=== PATIENT | female | born 1935 | race Asian ===

== ENCOUNTER 2016-05-06 18:43 | Inpatient (IN) | payer MEDICARE, OTHER ==
[~2016-05-06] VITALS: Ht 154.9 cm; Wt 54.4 kg
[~2016-05-06 18:43] MED LIST: AMLODIPINE-BEN1 EAC4 PO; APRODINE TABLE1 EACH PO; ASPIRIN81 MG ORAL; COMBIVENT RESPIM4 GM IH; CORDARONE200 M1 ORAL; CREON DR 12,001 EACH PO; DIOVAN HCT 1601 EAC1 PO; DIOVAN HCT 1601 EACH PO; FEMARA2.5 MG PO; FUROSEMIDE20 M1 ORAL; JANUVIA100 MG PO; KLOR-CON20 MEQ ORAL; LETROZOLE2.5 MG PO; LYRICA75 M1 PO; NEXIUM40 MG PO; NORMODYNE100 MG ORAL; NORTRIPTYLINE H25 MG PO; OYST CAL D 5001 EACH PO; PLAVIX75 MG ORAL; TRAMADOL HCL50 MG PO; VITAMIN B-121000 MCG PO; ZOCOR20 MG PO; simvastatin; simvistatin
[2016-05-06] MEDS ORDERED: Solu-MEDROL 125mg Inj IVP ONE (18:45)
[2016-05-06] MEDS: Albuterol ud Inhalation HHN SCH ×3 (18:57→19:29)
[2016-05-06] MEDS: Ipratropium 0.02% Inh Soln 2.5ml UD HHN SCH ×3 (18:57→19:28)
[2016-05-06 19:31] VITALS: BP 150/65
[2016-05-06 19:31] LABS: BASOPHILS % (AUTO) 1.1 % (0.0-2.0); EOSINOPHILS % (AUTO) 2.9 % (0.0-3.0); LYMPHOCYTES % (AUTO) 17.3 % (20.0-45.0); MEAN CORPUSCULAR HEMOGLOBIN 32.1 PG (27.0-31.0); MEAN CORPUSCULAR HGB CONC 31.1 G/DL (32.0-36.0); MEAN CORPUSCULAR VOLUME 103 FL (80-99); MEAN PLATELET VOLUME 7.4 FL (6.5-10.1); MONOCYTES % (AUTO) 6.3 % (1.0-10.0); NEUTROPHILS % (AUTO) 72.4 % (45.0-75.0); PLATELET COUNT 236 K/UL (150-450); RED BLOOD COUNT 3.66 M/UL (4.20-5.40); RED CELL DISTRIBUTION WIDTH 14.2 % (11.6-14.8); WHITE BLOOD COUNT 11.7 K/UL (4.8-10.8)
[2016-05-06] MEDS ORDERED: LORazepam Inj 2mg/ml 1ml IV ONE (19:45)
[2016-05-06 19:48] LABS: TROPONIN I < 0.30 ng/mL (<=0.30)
[2016-05-06 19:50] LABS: REFLEX LACTIC ACID YES OR NO YES
[2016-05-06] MEDS ORDERED: Azithromycin 500 MG in NS 275 ML IV ONE (20:15)
[2016-05-06] MEDS ORDERED: Cefepime HCl 1 GM in NS 55 ML IV ONE (20:15)
[2016-05-06 20:24] LABS: APPEARANCE,URINE CLEAR; KETONES,URINE NEGATIVE (NEGATIVE); LEUKOCYTE ESTERASE ,URINE NEGATIVE (NEGATIVE); NITRITE,URINE NEGATIVE (NEGATIVE); PH,URINE 7 (4.5-8.0); PROTEIN,URINE 4+ (NEGATIVE); UROBILINOGEN,URINE NORMAL MG/DL (0.0-1.0)
[2016-05-06] MEDS ORDERED: Cefepime 1gm vial ONE (20:27)
[2016-05-06 20:34] LABS: RBC,URINE 0 /HPF (0 - 2); WBC,URINE 0-2 /HPF (0 - 2)
[2016-05-06 20:47] LABS: ALANINE AMINOTRANSFERASE 25 U/L (3-33); ANION GAP 19 (5-15); ASPARTATE AMINO TRANSFERASE 41 U/L (5-40); CARBON DIOXIDE 20 mEQ/L (20-30); CHLORIDE 101 mEQ/L (98-107); CREATININE 1.2 mg/dL (0.5-0.9); HEMOLYSIS 64; POTASSIUM 5.6 mEQ/L (3.4-4.9); SODIUM 140 mEQ/L (135-145); TOTAL PROTEIN 7.1 g/dL (6.6-8.7)
[2016-05-06 20:57] VITALS: BP 166/32
[2016-05-06] MEDS ORDERED: Sodium Polystyrene Sulfonate 15gm Powder ORAL ONE (21:00)
[2016-05-06] MEDS ORDERED: Azithromycin Inj IV ONE (21:07)
--- NOTE | 2016-05-06 21:30 | Emergency Room Report ---
History of Present Illness General Chief Complaint: Dyspnea/Respdistress Source: EMS Present Illness HPI 81-year-old female presents to ED for evaluation. EMS stated that patient called 911 because she was short of breath. Symptoms started 2 days ago according to family. Her EMS patient was having crackles and wheezing bilaterally. Patient was started on breathing treatments. Upon arrival patient O2 saturation has improved. Patient has history of COPD. Patient denies any chest pain. Denies any fevers or chills. No aggravating or leading factors. Denies any other associated symptoms Allergies: Coded Allergies: ASPIRIN (Verified Allergy, Severe, NOSEBLEED, 04/11/12) LEVOFLOXACIN (Verified Allergy, Severe, erythema/pain/redness at IV site, 10/04/15) Patient History Past Medical History: DM, HTN, COPD Past Surgical History: other - mastectomy Pertinent Family History: none Social History: Denies: alcohol use, drug use, smoking Now: No Immunizations: UTD Reviewed Nursing Documentation: PMH: Agreed, PSxH: Agreed Nursing Documentation-PMH Hx Cardiac Problems: Yes Hx Hypertension: Yes Hx COPD: Yes Hx Diabetes: Yes Hx Cancer: Yes - BREAST CA (RIGHT MASTECTOMY) Hx Gastrointestinal Problems: No Hx Neurological Problems: No Review of Systems All Other Systems: negative except mentioned in HPI Physical Exam Vital Signs Date Time Temp Pulse Resp B/P Pulse Ox O2 Delivery O2 Flow Rate FiO2 05/06/16 18:32 99 25 150/68 93 6.0 05/06/16 18:57 Nasal Cannula 05/06/16 18:57 36 05/06/16 20:57 97.0 Sp02 EP Interpretation: reviewed, normal General Appearance: alert, GCS 15, non-toxic, mild distress Head: normocephalic Eyes: bilateral eye PERRL, bilateral eye normal inspection ENT: normal ENT inspection Neck: full range of motion, supple/symm/no masses Respiratory: chest non-tender, accessory muscle use, crackles, speaking full sentences, wheezing Cardiovascular #1: regular rate, rhythm, no edema Gastrointestinal: normal bowel sounds, non tender, soft, non-distended, no guarding, no rebound Rectal: deferred Genitourinary: no CVA tenderness Musculoskeletal: normal inspection Neurologic: alert, oriented x3, responsive, motor strength/tone normal, sensory intact, speech normal Psychiatric: normal inspection Skin: normal inspection Lymphatic: normal inspection Medical Decision Making Diagnostic Impression: Primary Impression: CHF exacerbation Qualified Codes: I50.9 - Heart failure, unspecified Additional Impressions: Pneumonia Qualified Codes: J18.9 - Pneumonia, unspecified organism ARF (acute renal failure) Qualified Codes: N17.9 - Acute kidney failure, unspecified Hyperkalemia, diminished renal excretion ER Course Hospital Course 81-year-old F presenting to ED with respiratory distress, crackles and wheezing Differential diagnoses include: Pneumonia, CHF exacerbation, pneumothorax, fluid overload Clinical course Patient placed on stretcher. 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 After initial history and physical, I ordered nebulizer treatments. I ordered labs, IV fluids, EKG, chest x-ray, blood cultures, UA. Patient continued to have some distress. Started on BiPAP. Labs -leukocytosis noted, hemoglobin/hematocrit stable, BUN/Cr elevated, K 5.6, BNP elevated, trop elevated CXR - cardiomegaly. b/l effusions Antibiotics given. kayexelate Ordered. Respiratory status improved on BiPAP Case discussed with Dr. Stubbs and he agreed to the patient to his service for further care and support I feel this is a highly complex case requiring extensive working including EKG/ Rhythm strip, Xray/CT/US, Blood/urine lab work, repeat exams while in ED, and administration of strong opiates/narcotics for pain control, admission to hospital or close patient follow up. Diagnosis - pneumonia, CHF exacerbation, hyperkalemia, ARF Patient admitted to [facility] in serious condition Labs Test 05/06/16 19:05 05/06/16 19:58 05/06/16 20:29 White Blood Count 11.7 K/UL (4.8-10.8) Red Blood Count 3.66 M/UL (4.20-5.40) Hemoglobin 11.8 G/DL (12.0-16.0) Hematocrit 37.9 % (37.0-47.0) Mean Corpuscular Volume 103 FL (80-99) Mean Corpuscular Hemoglobin 32.1 PG (27.0-31.0) Mean Corpuscular Hemoglobin Concent 31.1 G/DL (32.0-36.0) Red Cell Distribution Width 14.2 % (11.6-14.8) Platelet Count 236 K/UL (150-450) Mean Platelet Volume 7.4 FL (6.5-10.1) Neutrophils (%) (Auto) 72.4 % (45.0-75.0) Lymphocytes (%) (Auto) 17.3 % (20.0-45.0) Monocytes (%) (Auto) 6.3 % (1.0-10.0) Eosinophils (%) (Auto) 2.9 % (0.0-3.0) Basophils (%) (Auto) 1.1 % (0.0-2.0) Lactic Acid Level 2.20 mmol/L (0.66-2.22) Troponin I < 0.30 ng/mL (<=0.30) Urine Color Pale yellow Urine Appearance Clear Urine pH 7 (4.5-8.0) Urine Specific [place] 1.015 (1.005-1.035) Urine Protein 4+ (NEGATIVE) Urine Glucose (UA) Negative (NEGATIVE) Urine Ketones Negative (NEGATIVE) Urine Occult Blood Negative (NEGATIVE) Urine Nitrite Negative (NEGATIVE) Urine Bilirubin Negative (NEGATIVE) Urine Urobilinogen Normal MG/DL (0.0-1.0) Urine Leukocyte Esterase Negative (NEGATIVE) Urine RBC 0 /HPF (0 - 2) Urine WBC 0-2 /HPF (0 - 2) Urine Squamous Epithelial Cells None /LPF (NONE/OCC) Urine Bacteria None /HPF (NONE) Sodium Level 140 mEQ/L (135-145) Potassium Level 5.6 mEQ/L (3.4-4.9) Chloride Level 101 mEQ/L (98-107) Carbon Dioxide Level 20 mEQ/L (20-30) Anion Gap 19 (5-15) Blood Urea Nitrogen 40 mg/dL (7-23) Creatinine 1.2 mg/dL (0.5-0.9) Estimat Glomerular Filtration Rate mL/min (>60) Glucose Level 247 mg/dL (74-106) Calcium Level 9.0 mg/dL (8.6-10.2) Total Bilirubin 0.4 mg/dL (0.0-1.2) Aspartate Amino Transf (AST/SGOT) 41 U/L (5-40) Alanine Aminotransferase (ALT/SGPT) 25 U/L (3-33) Alkaline Phosphatase 136 U/L (35-104) Total Creatine Kinase 221 U/L (26-140) Creatine Kinase MB 5.0 ng/mL (< 3.8) Creatine Kinase MB Relative Index 2.2 Pro-B-Type Natriuretic Peptide 63233 pg/mL (0-450) Total Protein 7.1 g/dL (6.6-8.7) Albumin 3.6 g/dL (3.5-5.2) Globulin 3.5 g/dL Albumin/Globulin Ratio 1.0 (1.0-2.7) EKG Diagnostic Results Rate: normal Rhythm: NSR ST Segments: no acute changes ASA given to the pt in ED: No Rhythm Strip Diag. Results EP Interpretation: yes Rhythm: NSR, no PVC's, no ectopy Chest X-Ray Diagnostic Results EP Interpretation: Yes Findings: no pneumothorax, no acute cardiopulmonary disease, other - cardiomegaly. b/l effusions Number of Views: 1 Last Vital Signs Date Time Temp Pulse Resp B/P Pulse Ox O2 Delivery O2 Flow Rate FiO2 05/06/16 20:57 97.0 71 14 166/32 97 4.0 40 05/06/16 20:30 Facial Status: improved Disposition: ADMITTED INPATIENT Condition: Serious Referrals: NON PHYSICIAN (PCP) RADHA BARTH M.D. May 06, 2016 21:29
[2016-05-06] MEDS ORDERED: Sodium Polystyrene Sulfonate Enema RECTAL ONE (21:45)
[2016-05-06 22:15] VITALS: BP 134/39
[2016-05-06 22:30] VITALS: BP 153/62
[2016-05-06] MEDS ORDERED: Miralax 17gm pkt ORAL PRN (22:30)
[2016-05-06] MEDS ORDERED: DuoNeb 0.5-3(2.5)mg/3ml neb HHN PRN (22:30)
[2016-05-07] VITALS: BP 158/60
[2016-05-07 04:00] VITALS: BP 160/53
[2016-05-07 04:49] LABS: MEAN CORPUSCULAR HEMOGLOBIN 32.1 PG (27.0-31.0); MEAN CORPUSCULAR HGB CONC 31.2 G/DL (32.0-36.0); MEAN CORPUSCULAR VOLUME 103 FL (80-99); MEAN PLATELET VOLUME 7.1 FL (6.5-10.1); PLATELET COUNT 159 K/UL (150-450); RED BLOOD COUNT 3.03 M/UL (4.20-5.40); RED CELL DISTRIBUTION WIDTH 13.8 % (11.6-14.8); WHITE BLOOD COUNT 7.5 K/UL (4.8-10.8)
[2016-05-07 05:05] LABS: ANION GAP 15 (5-15); CALCIUM 8.4 mg/dL (8.6-10.2); CARBON DIOXIDE 20 mEQ/L (20-30); CHLORIDE 110 mEQ/L (98-107); CREATININE 1.1 mg/dL (0.5-0.9); HEMOLYSIS 2; PHOSPHORUS 4.3 mg/dL (2.5-4.8); POTASSIUM 4.6 mEQ/L (3.4-4.9); SODIUM 145 mEQ/L (135-145)
[2016-05-07 05:37] LABS: TROPONIN I < 0.30 ng/mL (<=0.30)
[2016-05-07] MEDS: NovoLOG Insulin Flexpen SUBQ SCH ×4 (06:22→21:26)
[2016-05-07 08:00] VITALS: BP_SYST 168; BP_SYST 173; BP_DIAS 58
--- NOTE | 2016-05-07 09:03 | Diagnostic Imaging Report ---
Indication: Dyspnea Technique: XRAY CHEST 1 V Comparison: 05/06/16 Findings: Cardiomediastinal silhouette is stable. Atherosclerotic changes are seen. There is improving interstitial edema. Bilateral costophrenic angles are again blunted with bibasilar atelectasis. Osseous structures are stable. Impression: Improving interstitial edema.
[2016-05-07] MEDS: Amiodarone 200mg tab ORAL SCH (09:24)
[2016-05-07] MEDS: Lyrica 75mg cap ORAL SCH (09:27)
[2016-05-07] MEDS: Heparin 5000 units/ml inj SUBQ SCH ×2 (09:37→21:26)
--- NOTE | 2016-05-07 11:11 | History and Physical ---
History of Present Illness General Date patient seen: May 07, 2016 Time patient seen: 09:00 Reason for Hospitalization: Dyspnea/Respdistress Present Illness HPI 61 y/old female was brought to ED due to c/o SOB x 2 days, from home by EMS r respiratory status somewhat improved after HHN given by EMS patient with hx of COPD, NSTEMI, CHF, cardiomyopathy denies chest pain, palpitations no fevers, no chills workup in ED revealed negative troponin, ECG with NSR, CXR with cardiomegaly and pulmonary congestion elevated pro BNP started on empiric abx in ED, Kayexalate given for K-5.6 patient admitted to [facility] for further management Allergies: Coded Allergies: ASPIRIN (Verified Allergy, Severe, NOSEBLEED, 04/11/12) LEVOFLOXACIN (Verified Allergy, Severe, erythema/pain/redness at IV site, 10/04/15) Medication History Scheduled Amiodarone Hcl* (Cordarone*), 200 MG ORAL DAILY Aspirin* (Aspirin*), 81 MG ORAL DAILY Clopidogrel Bisulfate* (Plavix*), 75 MG ORAL DAILY Esomeprazole Magnesium (Nexium), 40 MG PO DAILY, (Reported) Furosemide* (Lasix*), 20 MG ORAL DAILY Furosemide* (Lasix*), 20 MG ORAL DAILY, (Reported) Labetalol HCl (Labetalol HCl), 50 MG ORAL Q12HR Letrozole (Letrozole), 2.5 MG PO DAILY, (Reported) Potassium Chloride (Klor-Con), 20 MEQ ORAL DAILY Pregabalin* (Lyrica*), 75 MG PO DAILY, (Reported) Simvastatin (Zocor), 20 MG PO QHS, (Reported) Sitagliptin (Januvia), 100 MG PO DAILY, (Reported) Tramadol Hcl* (Ultram*), 50 MG PO Q6H, (Reported) Miscellaneous Medications Ipratropium/Albuterol Sulfate (Combivent Respimat Inhal [place]), 4 GM IH, ( Reported) P-Ephed Hcl/Triprolidine Hcl (Aprodine Tablet), 1 EACH PO, (Reported) Patient History Limited by: language barrier History Provided By: Patient Healthcare decision maker Resuscitation status Full Code Advanced Directive on File Past Medical/Surgical History Past Medical/Surgical History: (1) PAF (paroxysmal atrial fibrillation) (2) Hx of mastectomy (3) COPD (chronic obstructive pulmonary disease) (4) Diabetes (5) HTN (hypertension) (6) ATN (acute tubular necrosis) (7) Non-ST elevated myocardial infarction Review of Systems Constitutional: Reports: weakness Eye: Reports: no symptoms ENT: Reports: no symptoms Respiratory: Reports: see HPI Cardiovascular: Reports: see HPI Gastrointestinal: Reports: no symptoms Genitourinary: Reports: no symptoms Musculoskeletal: Reports: joint pain, other - hx of neck surgery Skin: Reports: no symptoms Psychiatric: Reports: no symptoms Neurological: Reports: no symptoms Endocrine: Reports: other - diabetes Hematologic/Lymphatic: Reports: other - R mastectomy Physical Exam General Appearance: WD/WN, no apparent distress, alert Lines, tubes and drains: peripheral HEENT: normocephalic, atraumatic, anicteric, mucous membranes moist Neck: non-tender, normal alignment, supple Respiratory/Chest: chest wall non-tender, decreased breath sounds Cardiovascular/Chest: regular rhythm, no JVD, bradycardia - 58 Abdomen: normal bowel sounds, non tender, soft Extremities: normal range of motion, non-tender, no calf tenderness, normal capillary refill Skin Exam: warm/dry Neurologic: no motor/sensory deficits, alert, responsive Last 24 Hour Vital Signs Date Time Temp Pulse Resp B/P Pulse Ox O2 Delivery O2 Flow Rate FiO2 05/07/16 09:24 68 173/58 05/07/16 08:52 62 15 98 Facial 40 05/07/16 08:00 40 05/07/16 08:00 59 05/07/16 07:00 60 15 98 Facial 40 05/07/16 05:18 61 16 98 Facial 40 05/07/16 04:00 97.4 62 13 160/53 99 Bi-pap 40 05/07/16 04:00 40 05/07/16 03:43 60 05/07/16 03:01 62 18 97 Facial 40 05/07/16 01:22 61 17 98 Facial 40 05/07/16 00:00 97.0 62 17 158/60 98 Bi-pap 40 05/07/16 00:00 40 05/06/16 23:43 61 05/06/16 23:00 61 14 97 Facial 40 05/06/16 22:31 40 05/06/16 22:30 97.0 75 19 153/62 99 Bi-pap 40 05/06/16 22:15 97.0 71 14 166/32 97 4.0 40 05/06/16 22:15 97.1 73 15 134/39 98 4.0 40 05/06/16 20:57 97.0 71 14 166/32 97 4.0 40 05/06/16 20:30 72 20 97 Facial 40 05/06/16 19:59 69 21 95 Facial 40 05/06/16 19:55 69 21 95 Bi-pap 40 05/06/16 19:31 77 24 Nasal Cannula 4.0 36 05/06/16 19:31 78 21 150/65 95 Nasal Cannula 4.0 36 05/06/16 19:29 77 24 96 Nasal Cannula 4.0 05/06/16 19:28 77 24 96 Nasal Cannula 4.0 36 05/06/16 19:13 76 21 95 Nasal Cannula 4.0 05/06/16 19:12 76 16 96 Nasal Cannula 4.0 36 05/06/16 18:57 79 19 Nasal Cannula 4.0 36 05/06/16 18:57 79 19 94 Nasal Cannula 4.0 05/06/16 18:32 99 25 150/68 93 6.0 Intake and Output 05/06/16 05/07/16 19:00 07:00 Intake Total 830 ml Output Total 150 ml Balance 680 ml Intake Oral 0 ml IV Total 830 ml Output Urine Total 150 ml # Voids 3 # Bowel Movements 2 Laboratory Tests Test 05/06/16 19:05 05/06/16 19:58 05/06/16 20:29 05/07/16 03:15 White Blood Count 11.7 K/UL (4.8-10.8) H 7.5 K/UL (4.8-10.8) Red Blood Count 3.66 M/UL (4.20-5.40) L 3.03 M/UL (4.20-5.40) L Hemoglobin 11.8 G/DL (12.0-16.0) L 9.7 G/DL (12.0-16.0) L Hematocrit 37.9 % (37.0-47.0) 31.2 % (37.0-47.0) L Mean Corpuscular Volume 103 FL (80-99) H 103 FL (80-99) H Mean Corpuscular Hemoglobin 32.1 PG (27.0-31.0) H 32.1 PG (27.0-31.0) H Mean Corpuscular Hemoglobin Concent 31.1 G/DL (32.0-36.0) L 31.2 G/DL (32.0-36.0) L Red Cell Distribution Width 14.2 % (11.6-14.8) 13.8 % (11.6-14.8) Platelet Count 236 K/UL (150-450) 159 K/UL (150-450) Mean Platelet Volume 7.4 FL (6.5-10.1) 7.1 FL (6.5-10.1) Neutrophils (%) (Auto) 72.4 % (45.0-75.0) % (45.0-75.0) Lymphocytes (%) (Auto) 17.3 % (20.0-45.0) L % (20.0-45.0) Monocytes (%) (Auto) 6.3 % (1.0-10.0) % (1.0-10.0) Eosinophils (%) (Auto) 2.9 % (0.0-3.0) % (0.0-3.0) Basophils (%) (Auto) 1.1 % (0.0-2.0) % (0.0-2.0) Lactic Acid Level 2.20 mmol/L (0.66-2.22) Troponin I < 0.30 ng/mL (<=0.30) < 0.30 ng/mL (<=0.30) Urine Color Pale yellow Urine Appearance Clear Urine pH 7 (4.5-8.0) Urine Specific [place] 1.015 (1.005-1.035) Urine Protein 4+ (NEGATIVE) H Urine Glucose (UA) Negative (NEGATIVE) Urine Ketones Negative (NEGATIVE) Urine Occult Blood Negative (NEGATIVE) Urine Nitrite Negative (NEGATIVE) Urine Bilirubin Negative (NEGATIVE) Urine Urobilinogen Normal MG/DL (0.0-1.0) Urine Leukocyte Esterase Negative (NEGATIVE) Urine RBC 0 /HPF (0 - 2) Urine WBC 0-2 /HPF (0 - 2) Urine Squamous Epithelial Cells None /LPF (NONE/OCC) Urine Bacteria None /HPF (NONE) Sodium Level 140 mEQ/L (135-145) 145 mEQ/L (135-145) Potassium Level 5.6 mEQ/L (3.4-4.9) H 4.6 mEQ/L (3.4-4.9) Chloride Level 101 mEQ/L (98-107) 110 mEQ/L (98-107) H Carbon Dioxide Level 20 mEQ/L (20-30) 20 mEQ/L (20-30) Anion Gap 19 (5-15) H 15 (5-15) Blood Urea Nitrogen 40 mg/dL (7-23) H 42 mg/dL (7-23) H Creatinine 1.2 mg/dL (0.5-0.9) H 1.1 mg/dL (0.5-0.9) H Estimat Glomerular Filtration Rate mL/min (>60) mL/min (>60) Glucose Level 247 mg/dL (74-106) H 149 mg/dL (74-106) H Calcium Level 9.0 mg/dL (8.6-10.2) 8.4 mg/dL (8.6-10.2) L Total Bilirubin 0.4 mg/dL (0.0-1.2) Aspartate Amino Transf (AST/SGOT) 41 U/L (5-40) H Alanine Aminotransferase (ALT/SGPT) 25 U/L (3-33) Alkaline Phosphatase 136 U/L (35-104) H Total Creatine Kinase 221 U/L (26-140) H Creatine Kinase MB 5.0 ng/mL (< 3.8) H Creatine Kinase MB Relative Index 2.2 Pro-B-Type Natriuretic Peptide 33067 pg/mL (0-450) H Total Protein 7.1 g/dL (6.6-8.7) Albumin 3.6 g/dL (3.5-5.2) 3.0 g/dL (3.5-5.2) L Globulin 3.5 g/dL Albumin/Globulin Ratio 1.0 (1.0-2.7) Phosphorus Level 4.3 mg/dL (2.5-4.8) Height (Feet): 5 Height (Inches): 1.00 Weight (Pounds): 120 Medications Current Medications Medications (Trade) Dose Ordered Sig/[place] Route PRN Reason Start Time Stop Time Status Last Admin Dose Admin Acetaminophen (Tylenol) 650 mg Q4H PRN ORAL Fever 1/21/17 22:30 06/05/16 22:29 Albuterol/ Ipratropium (DuoNeb 0.5-3(2.5)mg/3ml) 3 ml EVERY 4 HOURS PRN HHN Shortness of Breath 05/06/16 22:30 05/11/16 22:29 Amiodarone HCl (Cordarone) 200 mg DAILY ORAL 05/07/16 09:00 06/06/16 08:59 05/07/16 09:24 Clopidogrel Bisulfate (Plavix) 75 mg DAILY ORAL 05/07/16 09:00 06/06/16 08:59 05/07/16 09:24 Dextrose (Dextrose 50%) STAT PRN IV Hypoglycemia 05/06/16 22:30 06/05/16 22:29 Dextrose (Dextrose 50%) STAT PRN IV Hypoglycemia 05/06/16 22:30 06/05/16 22:29 Furosemide (Lasix) 40 mg EVERY 8 HOURS IV 05/07/16 06:00 06/06/16 05:59 05/07/16 06:22 Heparin Sodium (Porcine) (Heparin 5000 units/ml) 5,000 units EVERY 12 HOURS SUBQ 05/07/16 09:00 06/06/16 08:59 05/07/16 09:37 Insulin Aspart (NovoLOG) BEFORE MEALS AND HS SUBQ 05/07/16 06:30 06/06/16 06:29 05/07/16 06:22 Labetalol HCl (Normodyne) 50 mg Q12HR ORAL 05/07/16 09:00 06/06/16 08:59 05/07/16 09:24 Ondansetron HCl (Zofran) 4 mg Q6H PRN IVP Nausea & Vomiting 05/06/16 22:30 06/05/16 22:29 Ondansetron HCl (Zofran) 4 mg Q6H PRN IVP Nausea & Vomiting 05/06/16 22:30 06/05/16 22:29 Polyethylene Glycol (Miralax) 17 gm DAILYPRN PRN ORAL Constipation 05/06/16 22:30 06/05/16 22:29 Pregabalin (Lyrica) 75 mg DAILY ORAL 05/07/16 09:00 06/06/16 08:59 05/07/16 09:27 Temazepam (Restoril) 15 mg HSPRN PRN ORAL Insomnia 05/06/16 22:30 05/13/16 22:29 Assessment/Plan Assessment/Plan ASSESSMENT acute hypoxemic respiratory failure requiring BiPAP CHF COPD Cardiomyopathy PAF hx of NSTEMI HTN DM moderate pulmonary HTN anemia PLAN OF CARE [facility] on BiPAP continue ABG in am and will try to wean from BiPAP pulmonary toilet diuresis with Lasix, monitor renal parameters, lytes, I/O initial CXR with congestive changes fup with CXR in am so far no evidence of PNA, no further antibiotics no clinical evidence of COPD exacerbation , currently no need for steroids cardio eval pending ECHO today previous ECHO with EF 40% and RVSP of 48 c/w moderate pulmonary HTN on tele in sinus rhythm, no evidence of A fib, likely PAF, continue Amiodarone, no need for anticoagulation , check TSH BP management with BB, add Hydralazine prn, continue Plavix ( allergic to ASA) BS management with SS of insulin, check HgA1c monitor renal parameters, renal US previously no evidence of echogenicity hyperkalemia treated, K stable monitor HH, transfuse prn, workup if trending down DVT prophylaxis bowel regimen case discussed and evaluated by supervising physician Ke Mcfarland),Talya BARTLETT May 07, 2016 11:11
[2016-05-07 12:00] VITALS: BP 157/59
[2016-05-07 16:00] VITALS: BP 149/55
--- NOTE | 2016-05-07 16:21 | Consultation ---
Consult Note Assessment/Plan Cardiology for Dr. Dewey full consult dictated. #[id number] KATHERINE ALLEN May 07, 2016 16:21
[2016-05-07 20:00] VITALS: BP 164/59
[2016-05-07 22:17] LABS: TROPONIN I < 0.30 ng/mL (<=0.30)
[2016-05-08] VITALS: BP 163/51
[2016-05-08 04:00] VITALS: BP 168/59
[2016-05-08 05:42] LABS: BASOPHILS % (AUTO) 0.5 % (0.0-2.0); EOSINOPHILS % (AUTO) 0.3 % (0.0-3.0); LYMPHOCYTES % (AUTO) 10.2 % (20.0-45.0); MEAN CORPUSCULAR HEMOGLOBIN 32.8 PG (27.0-31.0); MEAN CORPUSCULAR HGB CONC 32.1 G/DL (32.0-36.0); MEAN CORPUSCULAR VOLUME 102 FL (80-99); MEAN PLATELET VOLUME 7.5 FL (6.5-10.1); MONOCYTES % (AUTO) 8.6 % (1.0-10.0); NEUTROPHILS % (AUTO) 80.3 % (45.0-75.0); PLATELET COUNT 155 K/UL (150-450); RED CELL DISTRIBUTION WIDTH 13.7 % (11.6-14.8); WHITE BLOOD COUNT 10.1 K/UL (4.8-10.8)
--- NOTE | 2016-05-08 05:47 | Consultation ---
DATE OF CONSULTATION: CARDIOLOGY CONSULTATION REASON FOR CONSULT: Chest pressure and shortness of breath. HISTORY OF PRESENT ILLNESS: History is obtained through a rn employee health as the patient speaks Chinese. The patient is an 81-year-old Chinese woman with a history of hypertension, diabetes, valvular heart disease, and a 5 cm ascending thoracic aortic aneurysm diagnosed by CT six months ago, who presents with chest pressure and shortness of breath. She was at home and awoke from sleep with substernal chest pressure associated with worsening shortness of breath. She took an inhaler, which did not relieve her symptoms. She presented to the emergency room (brought by paramedics) and was noted to be in respiratory distress with pulmonary rales and accessory muscle use. Oxygen saturation was 93% on 6 liters nasal cannula. She was hypertensive with blood pressure 150/68 and pulse of 99 beats per minute. She was diagnosed with heart failure and admitted for further treatment. She was also hyperkalemic with potassium 5.6 and received Kayexalate. Her past history is significant for previous hospitalization with congestive heart failure in September 2015. During that hospitalization, an echo showed an ejection fraction of 40%. There was moderate aortic stenosis and mitral regurgitation. She was also noted to have a 5 cm ascending aortic aneurysm on CT angiogram during that hospitalization. She did not wish to pursue any invasive therapies and was discharged on medication. PAST MEDICAL HISTORY: As noted above. Also history of breast cancer, status post right mastectomy, history of cervical spine fusion surgery, history of type 2 diabetes mellitus, and history of hypertension. MEDICATIONS: Hydralazine 10 mg intravenous every six hours p.r.n., amiodarone 200 mg daily, Plavix 75 mg daily, labetalol 50 mg q.12 hours, Lyrica 75 mg daily, subcutaneous heparin 5000 units q.12 h., NovoLog insulin sliding scale, Lasix 40 mg IV every eight hours, Zofran p.r.n., Tylenol p.r.n., DuoNeb q.4 h. p.r.n., Restoril 15 mg q.h.s. p.r.n., and Zofran p.r.n. ALLERGIES: Aspirin cause epistaxis and Levaquin (question epistaxis). SOCIAL HISTORY: The patient lives with her . She is a nonsmoker and does not drink alcohol. PHYSICAL EXAMINATION: VITAL SIGNS: Blood pressure is 157/59, pulse 60 and regular, respirations 19, and afebrile. GENERAL: Alert, elderly appearing woman, in no acute distress. HEENT: Normocephalic and atraumatic. Pupils are equal, round, and reactive to light. Sclerae anicteric. Oral mucosa are moist. NECK: Supple. There is no jugular venous distention. LUNGS: Few crackles at the bases. CHEST: Healed right mastectomy surgical scar. HEART: Regular S1 and S2 with a 2/6 systolic ejection murmur at the right intercostal space radiating across the precordium. No S3. No rubs. ABDOMEN: Soft and nontender. No palpable mass. EXTREMITIES: No cyanosis, clubbing, or edema. Distal lower extremity pulses are 2+ bilaterally. LABORATORY AND DIAGNOSTIC DATA: Hemoglobin 9.7, hematocrit 31, white blood count 7500, and platelets 159,000. Sodium 145, potassium 4.6, chloride 110, bicarbonate 20, BUN 42, and creatinine 1.1. Glucose 149. Troponin less than 0.3. Natriuretic peptide 12,420. Chest x-ray shows interstitial edema and basilar atelectasis. An echo preliminary report shows ejection fraction 55% to 60%, mild left ventricular hypertrophy, large posterior pericardial effusion, moderate mitral stenosis, moderate tricuspid regurgitation, moderate aortic regurgitation, and moderate aortic stenosis with a valve area of 1.2 cm2. ASSESSMENT AND RECOMMENDATIONS: The patient is an 81-year-old woman with multiple chronic medical problems as outlined above, who is admitted with chest pressure and shortness of breath. She has a known history of ascending aortic aneurysm above 5 cm for which, she declined operative intervention. She was in congestive heart failure on admission, but is improving with diuretics. Does not appear that she has an acute coronary syndrome as troponin levels are negative. I would favor continuing current medication including labetalol, which will be increased for blood pressure control and Lasix diuresis. Further medical therapy, we will increase labetalol for better blood pressure control and given her thoracic aneurysm, we will continue Lasix diuresis with close monitoring of intake and output, electrolytes, and renal function. We would consider repeat imaging of the thoracic aorta if the patient is willing to reconsider intervention for her aneurysm. Further recommendations will be made based on her clinical course. Dr. Dewey, we will continue to follow her. Marlene Guillen M.D. DR: ANDREW JOB#: [id number] CC:
[2016-05-08] MEDS: NovoLOG Insulin Flexpen SUBQ SCH ×4 (06:11→22:05)
[2016-05-08 06:32] LABS: TROPONIN I < 0.30 ng/mL (<=0.30)
[2016-05-08 06:45] LABS: HEMOGLOBIN A1C 5.4 % (< 6.0)
[2016-05-08 06:46] LABS: ANION GAP 18 (5-15); CALCIUM 8.8 mg/dL (8.6-10.2); CARBON DIOXIDE 24 mEQ/L (20-30); CHLORIDE 103 mEQ/L (98-107); CREATININE 1.2 mg/dL (0.5-0.9); HEMOLYSIS 5; POTASSIUM 3.5 mEQ/L (3.4-4.9); SODIUM 145 mEQ/L (135-145)
[2016-05-08 08:31] VITALS: BP 161/55
[2016-05-08] MEDS: Amiodarone 200mg tab ORAL SCH (08:37)
[2016-05-08] MEDS: Lyrica 75mg cap ORAL SCH (08:41)
[2016-05-08] MEDS: Heparin 5000 units/ml inj SUBQ SCH ×2 (08:43→22:08)
--- NOTE | 2016-05-08 10:37 | Pulmonology Progress Note ---
Assessment/Plan Problems: (1) Acute respiratory failure (2) COPD (chronic obstructive pulmonary disease) (3) Diabetes (4) ATN (acute tubular necrosis) (5) History of CHF (congestive heart failure) (6) Hyperkalemia, diminished renal excretion (7) Ascending aortic aneurysm (8) HTN (hypertension) Assessment/Plan hold lasix get Vq scan to rule out pulmonary embolism respiratory treatment swallow study pt/ot med/surg might benefit from stroids, low dose Subjective ROS Limited/Unobtainable: No Interval Events: less short of breath, more awake Constitutional: Reports: no symptoms Allergies: Coded Allergies: ASPIRIN (Verified Allergy, Severe, NOSEBLEED, 04/11/12) LEVOFLOXACIN (Verified Allergy, Severe, erythema/pain/redness at IV site, 10/04/15) Objective Last 24 Hour Vital Signs Date Time Temp Pulse Resp B/P Pulse Ox O2 Delivery O2 Flow Rate FiO2 05/08/16 08:39 79 161/55 05/08/16 08:31 97.5 79 20 161/55 97 Nasal Cannula 3.0 05/08/16 08:00 79 05/08/16 07:58 77 20 Nasal Cannula 4.0 36 05/08/16 04:00 96.3 81 18 168/59 98 Nasal Cannula 3.0 05/08/16 04:00 61 05/08/16 00:00 61 05/08/16 00:00 97.2 61 18 163/51 98 Nasal Cannula 3.0 05/07/16 23:45 71 97 3.0 32 05/07/16 21:22 72 164/59 05/07/16 20:50 72 97 3.0 32 05/07/16 20:00 69 05/07/16 20:00 97.9 70 14 164/59 100 Nasal Cannula 3.5 05/07/16 19:51 69 97 3.0 32 05/07/16 16:00 97.2 65 14 149/55 97 Nasal Cannula 3.5 05/07/16 16:00 3.0 05/07/16 16:00 65 05/07/16 15:02 69 97 3.0 32 05/07/16 12:33 67 11 98 Facial 40 05/07/16 12:00 97.7 60 16 157/59 100 Bi-pap 40 05/07/16 12:00 60 05/07/16 12:00 40 05/07/16 10:34 64 19 98 Facial 40 Intake and Output 05/07/16 05/08/16 19:00 07:00 Intake Total 590 ml 240 ml Output Total 500 ml 450 ml Balance 90 ml -210 ml Intake Oral 590 ml 240 ml Output Urine Total 500 ml 450 ml # Voids 1 5 # Bowel Movements 3 2 General Appearance: WD/WN HEENT: normocephalic, atraumatic Respiratory/Chest: chest wall non-tender, lungs clear Breasts: no masses Cardiovascular: normal peripheral pulses Abdomen: normal bowel sounds, soft, non tender Genitourinary: normal external genitalia Extremities: no cyanosis Neurologic/Psychiatric: it engineer II-XII grossly normal Lymphatic: no neck adenopathy Microbiology Date/Time Source Procedure Growth Status 05/06/16 19:00 Blood Blood Culture - Preliminary NO GROWTH AFTER 24 HOURS Resulted 05/06/16 18:45 Blood Blood Culture - Preliminary NO GROWTH AFTER 24 HOURS Resulted Laboratory Tests 05/07/16 22:00: Troponin I < 0.30 05/08/16 04:15: Troponin I < 0.30, White Blood Count 10.1, Red Blood Count 2.80L, Hemoglobin 9.2L, Hematocrit 28.6L, Mean Corpuscular Volume 102H, Mean Corpuscular Hemoglobin 32.8H, Mean Corpuscular Hemoglobin Concent 32.1, Red Cell Distribution Width 13.7, Platelet Count 155, Mean Platelet Volume 7.5, Neutrophils (%) (Auto) 80.3H, Lymphocytes (%) (Auto) 10.2L, Monocytes (%) (Auto ) 8.6, Eosinophils (%) (Auto) 0.3, Basophils (%) (Auto) 0.5, Sodium Level 145, Potassium Level 3.5, Chloride Level 103, Carbon Dioxide Level 24, Anion Gap 18H , Blood Urea Nitrogen 48H, Creatinine 1.2H, Estimat Glomerular Filtration Rate , Glucose Level 114H, Hemoglobin A1c 5.4, Calcium Level 8.8, Pro-B-Type Natriuretic Peptide 62217S, Thyroid Stimulating Hormone (TSH) 7.990H Current Medications Medications (Trade) Dose Ordered Sig/Rasta Route PRN Reason Start Time Stop Time Status Last Admin Dose Admin Acetaminophen (Tylenol) 650 mg Q4H PRN ORAL Fever 05/06/16 22:30 06/05/16 22:29 Albuterol/ Ipratropium (DuoNeb 0.5-3(2.5)mg/3ml) 3 ml EVERY 4 HOURS PRN HHN Shortness of Breath 05/06/16 22:30 05/11/16 22:29 Amiodarone HCl (Cordarone) 200 mg DAILY ORAL 05/07/16 09:00 06/06/16 08:59 05/08/16 08:37 Clopidogrel Bisulfate (Plavix) 75 mg DAILY ORAL 05/07/16 09:00 06/06/16 08:59 05/08/16 08:38 Dextrose (Dextrose 50%) STAT PRN IV Hypoglycemia 05/06/16 22:30 06/05/16 22:29 Dextrose (Dextrose 50%) STAT PRN IV Hypoglycemia 05/06/16 22:30 06/05/16 22:29 Furosemide (Lasix) 40 mg EVERY 8 HOURS IV 05/07/16 06:00 06/06/16 05:59 05/08/16 06:10 Heparin Sodium (Porcine) (Heparin 5000 units/ml) 5,000 units EVERY 12 HOURS SUBQ 05/07/16 09:00 06/06/16 08:59 05/08/16 08:43 Hydralazine HCl (Apresoline) 10 mg Q6H PRN IV sbp above 170 05/07/16 11:00 06/06/16 10:59 Insulin Aspart (NovoLOG) BEFORE MEALS AND HS SUBQ 05/07/16 06:30 06/06/16 06:29 05/07/16 21:26 Labetalol HCl (Normodyne) 100 mg Q12HR ORAL 05/07/16 21:00 06/06/16 20:59 05/08/16 08:39 Ondansetron HCl (Zofran) 4 mg Q6H PRN IVP Nausea & Vomiting 05/06/16 22:30 06/05/16 22:29 Ondansetron HCl (Zofran) 4 mg Q6H PRN IVP Nausea & Vomiting 05/06/16 22:30 06/05/16 22:29 Polyethylene Glycol (Miralax) 17 gm DAILYPRN PRN ORAL Constipation 05/06/16 22:30 06/05/16 22:29 Pregabalin (Lyrica) 75 mg DAILY ORAL 05/07/16 09:00 06/06/16 08:59 05/08/16 08:41 Temazepam (Restoril) 15 mg HSPRN PRN ORAL Insomnia 05/06/16 22:30 05/13/16 22:29 MARIANO CHOWDARY May 08, 2016 10:37
[2016-05-08] MEDS ORDERED: Adenosine Inj IVP ONE (13:30)
[2016-05-08 14:23] LABS: PROTHROMBIN TIME 10.3 SEC (9.30-11.50)
[2016-05-08 14:24] LABS: APPEARANCE,URINE CLEAR; KETONES,URINE NEGATIVE (NEGATIVE); LEUKOCYTE ESTERASE ,URINE NEGATIVE (NEGATIVE); NITRITE,URINE NEGATIVE (NEGATIVE); PH,URINE 6 (4.5-8.0); PROTEIN,URINE 3+ (NEGATIVE); UROBILINOGEN,URINE NORMAL MG/DL (0.0-1.0)
[2016-05-08 14:30] LABS: LYMPHOCYTES % (MANUAL) 13 % (20-45); NEUTROPHILS % (MANUAL) 82 % (45-75); TOTAL CELLS COUNTED 100
--- NOTE | 2016-05-08 14:34 | Diagnostic Imaging Report ---
Indication: Chest pain Technique: A ventilation/perfusion scan was performed. Ventilation was performed utilizing 42 mCi of technetium 99m DTPA. . Perfusion was performed with 5.7 mCi of technetium 99m-MAA injected intravenously. Lungs were then projected in 8 different projections. Findings: Correlation made with chest radiograph 05/07/16 Marked heterogeneity of both ventilation and region are demonstrated. There is a prominent perfusion and ventilation matched defect within the right midlung, without corresponding density on plain film. Other smaller perfusion defects are noted probable lung ellington. Some of these may be matched while others are indeterminate. Impression: Intermediate probability for pulmonary embolus. Consider evaluation with CTA
[2016-05-08 14:36] LABS: BAND NEUTROPHILS % (MANUAL) 0 % (0-8); BASOPHILS % (MANUAL) 0 % (0-2); EOSINOPHILS % (MANUAL) 0 % (0-3); HYPOCHROMASIA 1+; MACROCYTES 1+; PLATELET ESTIMATE ADEQUATE; PLATELET MORPHOLOGY NORMAL
[2016-05-08 14:37] LABS: ALANINE AMINOTRANSFERASE 30 U/L (3-33); ALBUMIN/GLOBULIN RATIO 1.1 (1.0-2.7); ANION GAP 13 (5-15); ASPARTATE AMINO TRANSFERASE 36 U/L (5-40); CALCIUM 9.1 mg/dL (8.6-10.2); CARBON DIOXIDE 31 mEQ/L (20-30); CHLORIDE 101 mEQ/L (98-107); CREATININE 1.2 mg/dL (0.5-0.9); HEMOLYSIS 7; PHOSPHORUS 4.1 mg/dL (2.5-4.8); POTASSIUM 3.4 mEQ/L (3.4-4.9); SODIUM 145 mEQ/L (135-145); TOTAL PROTEIN 6.4 g/dL (6.6-8.7); URIC ACID 7.5 mg/dL (3.0-7.5)
[2016-05-08 14:37] LABS: BACTERIA,URINE OCCASIONAL /HPF; RBC,URINE 0-2 /HPF (0 - 2); SQUAMOUS EPITHELIAL CELL,UR OCCASIONAL /LPF (NONE/OCC); WBC,URINE 0-2 /HPF (0 - 2)
[2016-05-08 14:38] LABS: HEMOLYSIS 3; IRON 38 ug/dL (37-145); LACTATE DEHYDROGENASE 222 U/L (135-230); TOTAL IRON BINDING CAPACITY 240 ug/dL (250-400)
[2016-05-08 14:39] LABS: PATH BLOOD SMEAR/OMC SENT TO PATHOLOGIST
[2016-05-08 14:49] LABS: FREE T3 2.6 pg/mL (2.3-4.2)
[2016-05-08 14:54] LABS: RETICULOCYTE COUNT 1.4 % (0.0-2.0)
[2016-05-08 16:00] VITALS: BP 152/80
--- NOTE | 2016-05-08 18:26 | Cardiology Report ---
APPROVED REPORT EXAM: Two-dimensional and M-mode echocardiogram with Doppler and color Doppler. INDICATION Left ventricular function M-Mode DIMENSIONS IVSd1.1 (0.7-1.1cm)Left Atrium (MM)4.8 (1.6-4.0cm) LVDd4.6 (3.5-5.6cm)Aortic Root2.6 (2.0-3.7cm) PWd0.9 (0.7-1.1cm)Aortic Cusp Exc.1.5 (1.5-2.0cm) LVDs3.6 (2.5-4.0cm) PWs1.4 cm Normal left ventricular chamber size, systolic function and wall motion. Left ventricular ejection fraction estimated to be 55-60 %. Mild left ventricular hypertrophy. Large posterior pericardial effusion. Right cardiac chamber sizes are within normal limits. Mild left atrial enlargement by 2D. Focal aortic valve sclerosis with adequate cusp excursion Moderatly thickened mitral valve leaflets with normal excursion. Moderate mitral annulus and aortic root calcification. Pulmonic valve not well visualized. Normal tricuspid valve structure. IVC is normal in size with minimal physiologic collapse. A color flow and spectral Doppler study was performed and revealed: Moderate aortic regurgitation. Peak aortic valve gradient of 37mmHg and a mean of 14 mmHg. Aortic valve area 1.2 cm2 calculated by continuity equation. Moderate mitral regurgitation. Left ventricular diastolic dysfunction grade 1. Moderate tricuspid regurgitation. Tricuspid systolic velocities suggests peak right ventricular systolic pressure of 81 mmHg Consistent with severe pulmonary hypertension.
--- NOTE | 2016-05-08 18:49 | Cardiology Progress Note ---
Assessment/Plan Assessment/Plan 1. History of Paroxysmal atrial fibrillation . 2. history of systolic heart failure with LVEF of 40%, now with normal ef 3. Moderate aortic stenosis and insufficiency with mitral insufficiency. 4. Ascending thoracic aneurysm. 5. chest pain 6. Systemic Hypertension. 7. Hyperlipidemia. 8. Diabetes 9. Pulmonary htn new echo now shows normal lv fucntion but with pulm htn i personally reviwed echo i dont think ef is normla i suspect ef is about 45-50% with mopd to sever MR and mod aortic stenossi and regurgiatation , has lefet sided pelural effusion all trop have been neg v/q intermediate probability no dvt by venous duplex would continue to diurese as bp allow will increase med for bp keep on bb in light of aortic aneurysm watch bp careflull may need to consider repeat ct of aorta tele neg Objective Last 24 Hour Vital Signs Date Time Temp Pulse Resp B/P Pulse Ox O2 Delivery O2 Flow Rate FiO2 05/08/16 09:40 97.5 05/08/16 08:39 79 161/55 05/08/16 08:31 97.5 79 20 161/55 97 Nasal Cannula 3.0 05/08/16 08:00 79 05/08/16 07:58 77 20 Nasal Cannula 4.0 36 05/08/16 04:00 96.3 81 18 168/59 98 Nasal Cannula 3.0 05/08/16 04:00 61 05/08/16 00:00 61 05/08/16 00:00 97.2 61 18 163/51 98 Nasal Cannula 3.0 05/07/16 23:45 71 97 3.0 32 05/07/16 21:22 72 164/59 05/07/16 20:50 72 97 3.0 32 05/07/16 20:00 69 05/07/16 20:00 97.9 70 14 164/59 100 Nasal Cannula 3.5 05/07/16 19:51 69 97 3.0 32 Intake and Output 05/07/16 05/08/16 19:00 07:00 Intake Total 590 ml 240 ml Output Total 500 ml 450 ml Balance 90 ml -210 ml Intake Oral 590 ml 240 ml Output Urine Total 500 ml 450 ml # Voids 1 5 # Bowel Movements 3 2 Laboratory Tests Test 05/07/16 22:00 05/08/16 04:15 05/08/16 13:00 05/08/16 13:45 Troponin I < 0.30 ng/mL (<=0.30) < 0.30 ng/mL (<=0.30) White Blood Count 10.1 K/UL (4.8-10.8) Red Blood Count 2.80 M/UL (4.20-5.40) L Hemoglobin 9.2 G/DL (12.0-16.0) L Hematocrit 28.6 % (37.0-47.0) L Mean Corpuscular Volume 102 FL (80-99) H Mean Corpuscular Hemoglobin 32.8 PG (27.0-31.0) H Mean Corpuscular Hemoglobin Concent 32.1 G/DL (32.0-36.0) Red Cell Distribution Width 13.7 % (11.6-14.8) Platelet Count 155 K/UL (150-450) Mean Platelet Volume 7.5 FL (6.5-10.1) Neutrophils (%) (Auto) 80.3 % (45.0-75.0) H Lymphocytes (%) (Auto) 10.2 % (20.0-45.0) L Monocytes (%) (Auto) 8.6 % (1.0-10.0) Eosinophils (%) (Auto) 0.3 % (0.0-3.0) Basophils (%) (Auto) 0.5 % (0.0-2.0) Differential Total Cells Counted 100 Neutrophils % (Manual) 82 % (45-75) H Lymphocytes % (Manual) 13 % (20-45) L Monocytes % (Manual) 5 % (1-10) Eosinophils % (Manual) 0 % (0-3) Basophils % (Manual) 0 % (0-2) Band Neutrophils 0 % (0-8) Platelet Estimate Adequate Platelet Morphology Normal Hypochromasia 1+ Macrocytosis 1+ Sodium Level 145 mEQ/L (135-145) 145 mEQ/L (135-145) Potassium Level 3.5 mEQ/L (3.4-4.9) 3.4 mEQ/L (3.4-4.9) Chloride Level 103 mEQ/L (98-107) 101 mEQ/L (98-107) Carbon Dioxide Level 24 mEQ/L (20-30) 31 mEQ/L (20-30) H Anion Gap 18 (5-15) H 13 (5-15) Blood Urea Nitrogen 48 mg/dL (7-23) H 45 mg/dL (7-23) H Creatinine 1.2 mg/dL (0.5-0.9) H 1.2 mg/dL (0.5-0.9) H Estimat Glomerular Filtration Rate mL/min (>60) mL/min (>60) Glucose Level 114 mg/dL (74-106) H 110 mg/dL (74-106) H Hemoglobin A1c 5.4 % (< 6.0) Calcium Level 8.8 mg/dL (8.6-10.2) 9.1 mg/dL (8.6-10.2) Pro-B-Type Natriuretic Peptide 08022 pg/mL (0-450) H Thyroid Stimulating Hormone (TSH) 7.990 uIU/mL (0.300-4.500) Urine Color Pale yellow Urine Appearance Clear Urine pH 6 (4.5-8.0) Urine Specific [place] 1.010 (1.005-1.035) Urine Protein 3+ (NEGATIVE) H Urine Glucose (UA) Negative (NEGATIVE) Urine Ketones Negative (NEGATIVE) Urine Occult Blood Negative (NEGATIVE) Urine Nitrite Negative (NEGATIVE) Urine Bilirubin Negative (NEGATIVE) Urine Urobilinogen Normal MG/DL (0.0-1.0) Urine Leukocyte Esterase Negative (NEGATIVE) Urine RBC 0-2 /HPF (0 - 2) Urine WBC 0-2 /HPF (0 - 2) Urine Squamous Epithelial Cells Occasional /LPF Urine Bacteria Occasional /HPF (NONE) Urine Eosinophils None seen Urine Osmolality Pending Urine Random Sodium 139 mmol/L Urine Random Chloride 130 mmol/L Urine Potassium Timed 18 mmol/L Erythrocyte Sedimentation Rate 73 MM/HR (0-42) H Reticulocyte Count 1.4 % (0.0-2.0) Prothrombin Time 10.3 SEC (9.30-11.50) Prothromb Time International Ratio 1.0 (0.9-1.1) Activated Partial Thromboplast Time 30 SEC (23-33) Plasma/Serum Osmolality Pending Uric Acid 7.5 mg/dL (3.0-7.5) Phosphorus Level 4.1 mg/dL (2.5-4.8) Magnesium Level 2.0 mg/dL (1.7-2.5) Iron Level 38 ug/dL (37-145) Total Iron Binding Capacity 240 ug/dL (250-400) L Percent Iron Saturation 16 % (15-50) Unsaturated Iron Binding 202 ug/dL (112-346) Total Bilirubin 0.5 mg/dL (0.0-1.2) Aspartate Amino Transf (AST/SGOT) 36 U/L (5-40) Alanine Aminotransferase (ALT/SGPT) 30 U/L (3-33) Alkaline Phosphatase 89 U/L (35-104) Lactate Dehydrogenase 222 U/L (135-230) Total Creatine Kinase 86 U/L (26-140) Total Protein 6.4 g/dL (6.6-8.7) L Albumin 3.4 g/dL (3.5-5.2) L Globulin 3.0 g/dL Albumin/Globulin Ratio 1.1 (1.0-2.7) Carcinoembryonic Antigen 4.6 ng/mL H Vitamin B12 Level 475 pg/mL (211-946) Folate Pending Free Thyroxine 0.88 ng/dL (0.86-1.85) Free Triiodothyronine 2.6 pg/mL (2.3-4.2) Cortisol Pending Microbiology Date/Time Source Procedure Growth Status 05/06/16 19:00 Blood Blood Culture - Preliminary NO GROWTH AFTER 24 HOURS Resulted 05/06/16 18:45 Blood Blood Culture - Preliminary NO GROWTH AFTER 24 HOURS Resulted ARPIT PEREIRA May 08, 2016 18:49
[2016-05-08 20:07] VITALS: BP 151/95
[2016-05-09] VITALS: BP 155/49
[2016-05-09 04:00] VITALS: BP_SYST 155; BP_SYST 188; BP_DIAS 49; BP_DIAS 55
[2016-05-09 04:59] LABS: BASOPHILS % (AUTO) 1.2 % (0.0-2.0); EOSINOPHILS % (AUTO) 3.2 % (0.0-3.0); LYMPHOCYTES % (AUTO) 17.2 % (20.0-45.0); MEAN CORPUSCULAR HEMOGLOBIN 32.9 PG (27.0-31.0); MEAN CORPUSCULAR HGB CONC 32.9 G/DL (32.0-36.0); MEAN CORPUSCULAR VOLUME 100 FL (80-99); MONOCYTES % (AUTO) 10.6 % (1.0-10.0); NEUTROPHILS % (AUTO) 67.8 % (45.0-75.0); PLATELET COUNT 152 K/UL (150-450); RED BLOOD COUNT 2.95 M/UL (4.20-5.40); RED CELL DISTRIBUTION WIDTH 13.5 % (11.6-14.8); WHITE BLOOD COUNT 6.7 K/UL (4.8-10.8)
[2016-05-09] MEDS: NovoLOG Insulin Flexpen SUBQ SCH ×4 (05:47→20:49)
[2016-05-09 08:00] VITALS: BP 147/58
[2016-05-09] MEDS: Lyrica 75mg cap ORAL SCH (08:46)
[2016-05-09] MEDS: Heparin 5000 units/ml inj SUBQ SCH ×2 (08:49→20:46)
[2016-05-09] MEDS ORDERED: Amiodarone 200mg tab ORAL SCH (09:00)
[2016-05-09 12:00] VITALS: BP 106/43
--- NOTE | 2016-05-09 13:01 | Cardiology Progress Note ---
Assessment/Plan Assessment/Plan 1. History of Paroxysmal atrial fibrillation . 2. history of systolic heart failure with LVEF of 40%, now with normal ef 3. Moderate aortic stenosis and insufficiency with mitral insufficiency. 4. Ascending thoracic aneurysm. 5. chest pain 6. Systemic Hypertension. 7. Hyperlipidemia. 8. Diabetes 9. Pulmonary htn new echo now shows normal lv fucntion but with pulm htn i personally reviewed echo i dont think ef is normal i suspect ef is about 45-50% with mod to sever MR and mod aortic stenossi and regurgiatation , has lefet sided pelural effusion all trop have been neg v/q intermediate probability ctpa neg for disection or PE but as expected postive for effusion no dvt by venous duplex will increase med for bp keep on bb in light of aortic aneurysm watch bp careflull tele neg would continue to diurese as bp allow need labs form today Subjective Cardiovascular: Reports: lightheadedness - initially , Denies: chest pain, palpitations Respiratory: Reports: shortness of breath Gastrointestinal/Abdominal: Denies: abdominal pain Genitourinary: Denies: burning - urinatign alot Objective Last 24 Hour Vital Signs Date Time Temp Pulse Resp B/P Pulse Ox O2 Delivery O2 Flow Rate FiO2 05/09/16 09:45 95.4 05/09/16 08:46 75 147/58 05/09/16 08:46 75 147/58 05/09/16 08:20 75 18 Nasal Cannula 3.0 32 05/09/16 08:00 95.4 75 16 147/58 98 Nasal Cannula 3.0 05/09/16 08:00 73 05/09/16 06:37 188/55 05/09/16 04:00 97.3 68 20 188/55 98 Nasal Cannula 3.0 05/09/16 04:00 60 05/09/16 00:01 58 05/09/16 00:00 97.0 57 20 155/49 97 Nasal Cannula 3.0 05/08/16 22:04 65 151/95 05/08/16 22:03 65 151/95 05/08/16 21:25 65 18 Nasal Cannula 4.0 36 05/08/16 20:23 61 05/08/16 20:07 97.5 67 20 151/95 97 Nasal Cannula 3.0 05/08/16 16:00 61 05/08/16 16:00 67 1/23/17 16:00 97.3 82 22 152/80 97 Nasal Cannula 3.0 General Appearance: no apparent distress, alert Neck: no JVD Cardiovascular: normal rate, regular rhythm Respiratory/Chest: decreased breath sounds - left side Abdomen: normal bowel sounds, non tender, soft Extremities: no swelling Intake and Output 05/08/16 05/09/16 19:00 07:00 Intake Total 360 ml 240 ml Output Total 400 ml Balance -40 ml 240 ml Intake Oral 360 ml 240 ml Output Urine Total 400 ml # Voids 3 4 # Bowel Movements 2 1 Laboratory Tests Test 05/08/16 13:00 05/08/16 13:45 05/09/16 04:05 Urine Color Pale yellow Urine Appearance Clear Urine pH 6 (4.5-8.0) Urine Specific [place] 1.010 (1.005-1.035) Urine Protein 3+ (NEGATIVE) H Urine Glucose (UA) Negative (NEGATIVE) Urine Ketones Negative (NEGATIVE) Urine Occult Blood Negative (NEGATIVE) Urine Nitrite Negative (NEGATIVE) Urine Bilirubin Negative (NEGATIVE) Urine Urobilinogen Normal MG/DL (0.0-1.0) Urine Leukocyte Esterase Negative (NEGATIVE) Urine RBC 0-2 /HPF (0 - 2) Urine WBC 0-2 /HPF (0 - 2) Urine Squamous Epithelial Cells Occasional /LPF Urine Bacteria Occasional /HPF (NONE) Urine Eosinophils None seen Urine Osmolality Pending Urine Random Sodium 139 mmol/L Urine Random Chloride 130 mmol/L Urine Potassium Timed 18 mmol/L Erythrocyte Sedimentation Rate 73 MM/HR (0-42) H Reticulocyte Count 1.4 % (0.0-2.0) Prothrombin Time 10.3 SEC (9.30-11.50) Prothromb Time International Ratio 1.0 (0.9-1.1) Activated Partial Thromboplast Time 30 SEC (23-33) Sodium Level 145 mEQ/L (135-145) Potassium Level 3.4 mEQ/L (3.4-4.9) Chloride Level 101 mEQ/L (98-107) Carbon Dioxide Level 31 mEQ/L (20-30) H Anion Gap 13 (5-15) Blood Urea Nitrogen 45 mg/dL (7-23) H Creatinine 1.2 mg/dL (0.5-0.9) H Estimat Glomerular Filtration Rate mL/min (>60) Glucose Level 110 mg/dL (74-106) H Plasma/Serum Osmolality Pending Uric Acid 7.5 mg/dL (3.0-7.5) Calcium Level 9.1 mg/dL (8.6-10.2) Phosphorus Level 4.1 mg/dL (2.5-4.8) Magnesium Level 2.0 mg/dL (1.7-2.5) Iron Level 38 ug/dL (37-145) Total Iron Binding Capacity 240 ug/dL (250-400) L Percent Iron Saturation 16 % (15-50) Unsaturated Iron Binding 202 ug/dL (112-346) Total Bilirubin 0.5 mg/dL (0.0-1.2) Aspartate Amino Transf (AST/SGOT) 36 U/L (5-40) Alanine Aminotransferase (ALT/SGPT) 30 U/L (3-33) Alkaline Phosphatase 89 U/L (35-104) Lactate Dehydrogenase 222 U/L (135-230) Total Creatine Kinase 86 U/L (26-140) Total Protein 6.4 g/dL (6.6-8.7) L Albumin 3.4 g/dL (3.5-5.2) L Globulin 3.0 g/dL Albumin/Globulin Ratio 1.1 (1.0-2.7) Carcinoembryonic Antigen 4.6 ng/mL H Vitamin B12 Level 475 pg/mL (211-946) Folate Pending Free Thyroxine 0.88 ng/dL (0.86-1.85) Free Triiodothyronine 2.6 pg/mL (2.3-4.2) Cortisol Pending White Blood Count 6.7 K/UL (4.8-10.8) Red Blood Count 2.95 M/UL (4.20-5.40) L Hemoglobin 9.7 G/DL (12.0-16.0) L Hematocrit 29.6 % (37.0-47.0) L Mean Corpuscular Volume 100 FL (80-99) H Mean Corpuscular Hemoglobin 32.9 PG (27.0-31.0) H Mean Corpuscular Hemoglobin Concent 32.9 G/DL (32.0-36.0) Red Cell Distribution Width 13.5 % (11.6-14.8) Platelet Count 152 K/UL (150-450) Mean Platelet Volume 9.0 FL (6.5-10.1) Neutrophils (%) (Auto) 67.8 % (45.0-75.0) Lymphocytes (%) (Auto) 17.2 % (20.0-45.0) L Monocytes (%) (Auto) 10.6 % (1.0-10.0) H Eosinophils (%) (Auto) 3.2 % (0.0-3.0) H Basophils (%) (Auto) 1.2 % (0.0-2.0) Microbiology Date/Time Source Procedure Growth Status 05/06/16 19:00 Blood Blood Culture - Preliminary NO GROWTH AFTER 48 HOURS Resulted 05/06/16 18:45 Blood Blood Culture - Preliminary NO GROWTH AFTER 48 HOURS Resulted ARPIT PEREIRA May 09, 2016 13:01
--- NOTE | 2016-05-09 14:49 | Pulmonology Progress Note ---
Assessment/Plan Problems: (1) Acute respiratory failure (2) COPD (chronic obstructive pulmonary disease) (3) Diabetes (4) ATN (acute tubular necrosis) (5) History of CHF (congestive heart failure) (6) Hyperkalemia, diminished renal excretion (7) Ascending aortic aneurysm (8) HTN (hypertension) (9) Pulmonary HTN Assessment/Plan echo reviewed by finish mender showing "about 45-50% with mod to sever MR and mod aortic stenosis and regurgitation , has left sided pleural effusion " get Vq scan to rule out pulmonary embolism respiratory treatment swallow study pt/ot teli might benefit from stroids, low dose check intake output check electrolytes. Subjective ROS Limited/Unobtainable: No Interval Events: feeling better Constitutional: Reports: no symptoms HEENT: Repors: no symptoms Respiratory: Reports: no symptoms Cardiovascular: Reports: no symptoms Allergies: Coded Allergies: ASPIRIN (Verified Allergy, Severe, NOSEBLEED, 04/11/12) LEVOFLOXACIN (Verified Allergy, Severe, erythema/pain/redness at IV site, 10/04/15) Objective Last 24 Hour Vital Signs Date Time Temp Pulse Resp B/P Pulse Ox O2 Delivery O2 Flow Rate FiO2 05/09/16 12:00 56 05/09/16 12:00 97.2 60 16 106/43 98 Nasal Cannula 3.0 05/09/16 09:45 95.4 05/09/16 08:46 75 147/58 05/09/16 08:46 75 147/58 05/09/16 08:20 75 18 Nasal Cannula 3.0 32 05/09/16 08:00 95.4 75 16 147/58 98 Nasal Cannula 3.0 05/09/16 08:00 73 05/09/16 06:37 188/55 05/09/16 04:00 97.3 68 20 188/55 98 Nasal Cannula 3.0 05/09/16 04:00 60 05/09/16 00:01 58 05/09/16 00:00 97.0 57 20 155/49 97 Nasal Cannula 3.0 05/08/16 22:04 65 151/95 05/08/16 22:03 65 151/95 05/08/16 21:25 65 18 Nasal Cannula 4.0 36 05/08/16 20:23 61 05/08/16 20:07 97.5 67 20 151/95 97 Nasal Cannula 3.0 05/08/16 16:00 61 05/08/16 16:00 67 05/08/16 16:00 97.3 82 22 152/80 97 Nasal Cannula 3.0 Intake and Output 05/08/16 05/09/16 19:00 07:00 Intake Total 360 ml 240 ml Output Total 400 ml Balance -40 ml 240 ml Intake Oral 360 ml 240 ml Output Urine Total 400 ml # Voids 3 4 # Bowel Movements 2 1 General Appearance: cachetic HEENT: atraumatic Respiratory/Chest: chest wall non-tender, lungs clear Cardiovascular: normal peripheral pulses, normal rate Abdomen: normal bowel sounds, soft, non tender Genitourinary: normal external genitalia Extremities: no clubbing 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 normal Microbiology Date/Time Source Procedure Growth Status 05/06/16 19:00 Blood Blood Culture - Preliminary NO GROWTH AFTER 48 HOURS Resulted 05/06/16 18:45 Blood Blood Culture - Preliminary NO GROWTH AFTER 48 HOURS Resulted Laboratory Tests 05/09/16 04:05: White Blood Count 6.7, Red Blood Count 2.95L, Hemoglobin 9.7L, Hematocrit 29.6L , Mean Corpuscular Volume 100H, Mean Corpuscular Hemoglobin 32.9H, Mean Corpuscular Hemoglobin Concent 32.9, Red Cell Distribution Width 13.5, Platelet Count 152, Mean Platelet Volume 9.0, Neutrophils (%) (Auto) 67.8, Lymphocytes (% ) (Auto) 17.2L, Monocytes (%) (Auto) 10.6H, Eosinophils (%) (Auto) 3.2H, Basophils (%) (Auto) 1.2 05/09/16 13:20: Sodium Level [Pending], Potassium Level [Pending], Chloride Level [Pending], Carbon Dioxide Level [Pending], Blood Urea Nitrogen [Pending], Creatinine [ Pending], Estimat Glomerular Filtration Rate [Pending], Glucose Level [Pending] , Calcium Level [Pending] Current Medications Medications (Trade) Dose Ordered Sig/[place]asta Route PRN Reason Start Time Stop Time Status Last Admin Dose Admin Acetaminophen (Tylenol) 650 mg Q4H PRN ORAL Fever 05/06/16 22:30 06/05/16 22:29 Albuterol/ Ipratropium (DuoNeb 0.5-3(2.5)mg/3ml) 3 ml EVERY 4 HOURS PRN HHN Shortness of Breath 05/06/16 22:30 05/11/16 22:29 Amiodarone HCl (Cordarone) 200 mg DAILY ORAL 05/09/16 09:00 06/08/16 08:59 05/09/16 08:46 Amlodipine Besylate (Norvasc) 2.5 mg BID ORAL 05/08/16 21:00 06/07/16 20:59 05/09/16 08:46 Clopidogrel Bisulfate (Plavix) 75 mg DAILY ORAL 05/07/16 09:00 06/06/16 08:59 05/09/16 08:46 Dextrose (Dextrose 50%) STAT PRN IV Hypoglycemia 05/06/16 22:30 06/05/16 22:29 Furosemide (Lasix) 40 mg EVERY 12 HOURS IV 05/08/16 21:00 06/07/16 20:59 05/09/16 08:47 Heparin Sodium (Porcine) (Heparin 5000 units/ml) 5,000 units EVERY 12 HOURS SUBQ 05/07/16 09:00 06/06/16 08:59 05/09/16 08:49 Hydralazine HCl (Apresoline) 10 mg Q6H PRN IV sbp above 170 05/07/16 11:00 06/06/16 10:59 05/09/16 06:37 Insulin Aspart (NovoLOG) BEFORE MEALS AND HS SUBQ 05/07/16 06:30 06/06/16 06:29 05/09/16 11:57 Labetalol HCl (Normodyne) 100 mg Q12HR ORAL 05/07/16 21:00 06/06/16 20:59 05/09/16 08:46 Ondansetron HCl (Zofran) 4 mg Q6H PRN IVP Nausea & Vomiting 05/06/16 22:30 06/05/16 22:29 Ondansetron HCl (Zofran) 4 mg Q6H PRN IVP Nausea & Vomiting 05/06/16 22:30 06/05/16 22:29 Polyethylene Glycol (Miralax) 17 gm DAILYPRN PRN ORAL Constipation 05/06/16 22:30 06/05/16 22:29 Pregabalin (Lyrica) 75 mg DAILY ORAL 05/07/16 09:00 06/06/16 08:59 05/09/16 08:46 Temazepam (Restoril) 15 mg HSPRN PRN ORAL Insomnia 05/06/16 22:30 05/13/16 22:29 MARIANO CHOWDARY May 09, 2016 14:49
[2016-05-09 14:51] LABS: ANION GAP 12 (5-15); CARBON DIOXIDE 31 mEQ/L (20-30); CHLORIDE 100 mEQ/L (98-107); CREATININE 1.1 mg/dL (0.5-0.9); HEMOLYSIS 25; POTASSIUM 3.5 mEQ/L (3.4-4.9); SODIUM 143 mEQ/L (135-145)
[2016-05-09 16:00] VITALS: BP 154/48
[2016-05-09 20:00] VITALS: BP 129/59
[2016-05-09] MEDS ORDERED: Miralax 17gm pkt ORAL PRN (22:30)
[2016-05-10] VITALS (7 sets, daily range): BP systolic 133–161; BP diastolic 41–63
[2016-05-10] MEDS ORDERED: DuoNeb 0.5-3(2.5)mg/3ml neb HHN PRN (01:00)
[2016-05-10] MEDS: NovoLOG Insulin Flexpen SUBQ SCH ×4 (06:39→21:20)
[2016-05-10 07:46] LABS: ANION GAP 12 (5-15); CALCIUM 8.8 mg/dL (8.6-10.2); CARBON DIOXIDE 31 mEQ/L (20-30); CHLORIDE 102 mEQ/L (98-107); CREATININE 1.3 mg/dL (0.5-0.9); HEMOLYSIS 6; MAGNESIUM 2.1 mg/dL (1.7-2.5); POTASSIUM 3.7 mEQ/L (3.4-4.9); SODIUM 145 mEQ/L (135-145)
[2016-05-10] MEDS: Heparin 5000 units/ml inj SUBQ SCH ×2 (08:42→21:21)
[2016-05-10] MEDS ORDERED: Lyrica 75mg cap ORAL SCH (09:00)
[2016-05-10] MEDS ORDERED: Amiodarone 200mg tab ORAL SCH (09:00)
--- NOTE | 2016-05-10 10:54 | Diagnostic Imaging Report ---
Indication: DYSPNEA Technique: One view of the chest Comparison: 05/07/2016 Findings: There is improved aeration of both lung bases, particularly the left. There is persistent bilateral costophrenic angle blunting. The heart is enlarged. There is aneurysmal dilatation and tortuosity of the thoracic aorta. Cervical spine fusion hardware is again noted Impression: Decreased bilateral basilar consolidation and atelectasis, over 3 days. Otherwise stable findings, as described
--- NOTE | 2016-05-10 13:45 | Diagnostic Imaging Report ---
ndication: Shortness of breath Technique: IV administration nonionic contrast. Spiral acquisitions obtained from the lung bases to the lung apices. Multiplanar and 3-D reconstructions were generated. Total dose length product 440 mGycm. CTDIvol(s) 12, 25, 14 mGy Comparison: 10/04/2015 Findings: There is good quality opacification of the pulmonary arteries. No intraluminal filling defects or other findings to suggest acute pulmonary embolus are evident. Again demonstrated is dilatation of the main pulmonary artery, which measures 4 cm in diameter Again demonstrated is aneurysmal dilatation of the ascending thoracic aorta. This measures approximately 5.1 cm AP by 5 cm transverse, appears unchanged from the previous study. The aneurysm extends to the level of the aortic arch. The descending thoracic aorta is nonaneurysmal. The heart is enlarged. There is no evidence of pericardial effusion. Reflux of contrast into the inferior vena cava and hepatic veins likely indicates right heart failure. There is extensive mitral annular calcification again demonstrated. The lungs demonstrate areas of groundglass opacity throughout both upper lobes. This is similar to the previous study. There are also more focal areas of consolidation bilaterally inferiorly. There is compressive atelectasis of a portion of the lower lobes bilaterally, left greater than right. This was more extensive previously and currently, however. Again demonstrated is narrowing of the trachea in the AP dimension, probably due to insufficiency of the posterior wall. No mediastinal or hilar mass or adenopathy. Previously demonstrated mediastinal edema is less striking than on the prior exam. 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 No axillary or chest wall mass or adenopathy demonstrated. There is extensive lower cervical and upper thoracic spinal fusion surgery. There is a compression fracture deformity of the L5 vertebral body which is unchanged. There are right ribs subacute and chronic fracture deformities again demonstrated The included upper abdominal anatomy is unremarkable Impression: Negative for evidence of acute pulmonary embolus Unchanged ascending thoracic aortic aneurysm Unchanged main pulmonary artery dilatation, likely indicative of pulmonary arterial hypertension Cardiomegaly Evidence of congestive heart failure, with diffuse groundglass opacity and bilateral pleural effusions, also previously demonstrated. Reflux of contrast into the inferior vena cava and hepatic veins is indicative of right heart failure Bilateral compressive pulmonary atelectatic changes, also previously demonstrated Post surgical changes as described, including evidence of prior right mastectomy, prior cervicothoracic spinal fusion surgery L5 vertebral body compression fracture, unchanged since 10/04/2015 Old and subacute rib fracture deformities on the right This agrees with the preliminary interpretation provided overnight by [facility]. The CT scanner at [facility] is accredited by the [employer] and the scans are performed using protocols designed to limit radiation exposure to as low as reasonably achievable to attain images of sufficient resolution adequate for diagnostic evaluation.
--- NOTE | 2016-05-10 13:45 | Diagnostic Imaging Report ---
Indication: Abnormal renal function tests Technique: Grayscale and duplex images of the kidneys, retroperitoneum, and bladder were obtained. Comparison:10/04/2015 Findings: Right kidney measures report for cm in length. Left kidney measures 9.1 cm in length. Both kidneys demonstrate normal echogenicity. No hydronephrosis. Non-shadowing calcifications are seen within the right kidney. These are not evident on the prior study. There is a 7 mm right renal cyst. No focal abnormalities seen on the left. Normal inferior vena cava. Bladder is normal. There is incidental finding of bilateral pleural effusions Impression: Negative for hydronephrosis Equivocal nonobstructing small right renal calculi. Small right renal cyst Incidental finding bilateral pleural effusions
--- NOTE | 2016-05-10 20:07 | Cardiology Progress Note ---
Assessment/Plan Assessment/Plan 1. History of Paroxysmal atrial fibrillation . 2. history of systolic heart failure with LVEF of 40%, now with normal ef 3. Moderate aortic stenosis and insufficiency with mitral insufficiency. 4. Ascending thoracic aneurysm. 5. chest pain 6. Systemic Hypertension. 7. Hyperlipidemia. 8. Diabetes 9. Pulmonary htn new echo now shows normal lv fucntion but with pulm htn i personally reviewed echo i dont think ef is normal i suspect ef is about 45-50% with mod to sever MR and mod aortic stenossi and regurgiatation , has lefet sided pelural effusion all trop have been neg v/q intermediate probability ctpa neg for dissection or PE but as expected positive for effusion no dvt by venous duplex will increase med for bp keep on bb in light of aortic aneurysm watch bp careflull tele neg diuretics home tomorrow if sat on room air adequate Subjective Cardiovascular: Denies: lightheadedness Respiratory: Denies: cough Gastrointestinal/Abdominal: Denies: abdomen distended Genitourinary: Reports: burning Subjective better Objective Last 24 Hour Vital Signs Date Time Temp Pulse Resp B/P Pulse Ox O2 Delivery O2 Flow Rate FiO2 05/10/16 20:00 97.7 61 20 133/63 97 Nasal Cannula 2.0 05/10/16 19:23 97 Nasal Cannula 3.0 32 05/10/16 19:23 Nasal Cannula 3.0 32 05/10/16 19:23 68 18 Nasal Cannula 3.0 32 05/10/16 18:03 61 137/54 05/10/16 16:00 67 05/10/16 16:00 97.6 61 20 137/54 97 Nasal Cannula 2.0 05/10/16 12:00 98.2 75 16 136/41 96 Nasal Cannula 3.0 05/10/16 09:40 98.2 05/10/16 09:00 67 05/10/16 08:49 76 126/46 05/10/16 08:48 76 126/46 05/10/16 08:00 96.9 46 16 136/61 95 Nasal Cannula 3.0 05/10/16 04:20 98 Nasal Cannula 3.0 05/10/16 04:16 98.2 68 20 141/44 94 Room Air 05/10/16 04:00 64 05/10/16 00:10 140/60 05/10/16 00:00 60 05/10/16 00:00 99.0 61 20 161/45 98 Nasal Cannula 2.0 05/09/16 20:45 72 155/60 General Appearance: alert Neck: supple Cardiovascular: normal rate, regular rhythm, systolic murmur Respiratory/Chest: decreased breath sounds - left base Abdomen: normal bowel sounds, non tender, soft Extremities: non-tender, no swelling Intake and Output 05/09/16 05/10/16 19:00 07:00 Intake Total 240 ml 360 ml Output Total 250 ml Balance 240 ml 110 ml Intake Oral 240 ml 360 ml Output Urine Total 250 ml # Voids 2 3 Laboratory Tests Test 05/10/16 05:55 05/10/16 12:30 Sodium Level 145 mEQ/L (135-145) Potassium Level 3.7 mEQ/L (3.4-4.9) Chloride Level 102 mEQ/L (98-107) Carbon Dioxide Level 31 mEQ/L (20-30) H Anion Gap 12 (5-15) Blood Urea Nitrogen 46 mg/dL (7-23) H Creatinine 1.3 mg/dL (0.5-0.9) H Estimat Glomerular Filtration Rate mL/min (>60) Glucose Level 106 mg/dL (74-106) Calcium Level 8.8 mg/dL (8.6-10.2) Magnesium Level 2.1 mg/dL (1.7-2.5) Pro-B-Type Natriuretic Peptide 73210 pg/mL (0-450) H Stool Occult Blood Positive (NEGATIVE) ARPIT PEREIRA May 10, 2016 20:07
[2016-05-11 00:19] VITALS: BP 153/49
[2016-05-11] MEDS ORDERED: DuoNeb 0.5-3(2.5)mg/3ml neb HHN PRN (02:21)
[2016-05-11] MEDS ORDERED: Miralax 17gm pkt ORAL PRN (02:23)
[2016-05-11 04:00] VITALS: BP 145/59
[2016-05-11] MEDS: NovoLOG Insulin Flexpen SUBQ SCH ×2 (06:25→11:30)
[2016-05-11 07:57] VITALS: BP 141/71
[2016-05-11] MEDS ORDERED: Lyrica 75mg cap ORAL SCH (09:00)
[2016-05-11] MEDS ORDERED: Amiodarone 200mg tab ORAL SCH (09:00)
[2016-05-11] MEDS ORDERED: Heparin 5000 units/ml inj SUBQ SCH (09:00)
[2016-05-11] MEDS ORDERED: Furosemide 40mg tab ORAL SCH ×2 (09:00)
[2016-05-11 10:30] LABS: CORTISOL 11.1 ug/dL
[2016-05-11 11:49] VITALS: BP 121/67
--- NOTE | 2016-05-11 14:51 | Pulmonology Progress Note ---
Assessment/Plan Problems: (1) Acute respiratory failure (2) COPD (chronic obstructive pulmonary disease) (3) Diabetes (4) ATN (acute tubular necrosis) (5) History of CHF (congestive heart failure) (6) Hyperkalemia, diminished renal excretion (7) Ascending aortic aneurysm (8) HTN (hypertension) (9) Pulmonary HTN Assessment/Plan continues to improve. echo reviewed by sign writer letterer or painter showing "about 45-50% with mod to sever MR and mod aortic stenosis and regurgitation , has left sided pleural effusion " get Vq scan to rule out pulmonary embolism respiratory treatment swallow study pt/ot med/surg check intake output check electrolytes. Subjective ROS Limited/Unobtainable: No Interval Events: late note for yesterday, improving, less sob, walking with PT Allergies: Coded Allergies: ASPIRIN (Verified Allergy, Severe, NOSEBLEED, 04/11/12) LEVOFLOXACIN (Verified Allergy, Severe, erythema/pain/redness at IV site, 10/04/15) Objective Last 24 Hour Vital Signs Date Time Temp Pulse Resp B/P Pulse Ox O2 Delivery O2 Flow Rate FiO2 05/11/16 11:49 97.6 76 20 121/67 99 Room Air 05/11/16 09:41 76 141/71 05/11/16 09:40 76 141/71 05/11/16 07:57 97.2 76 20 141/71 95 Room Air 05/11/16 07:12 95 Room Air 21 05/11/16 07:12 68 16 Nasal Cannula 3.0 32 05/11/16 04:00 97.3 71 18 145/59 Room Air 05/11/16 00:19 98.1 56 17 153/49 96 Room Air 05/10/16 21:18 61 133/63 05/10/16 20:00 97.7 61 20 133/63 97 Nasal Cannula 2.0 05/10/16 20:00 61 05/10/16 19:23 97 Nasal Cannula 3.0 32 05/10/16 19:23 Nasal Cannula 3.0 32 05/10/16 19:23 68 18 Nasal Cannula 3.0 32 05/10/16 18:03 61 137/54 05/10/16 16:00 67 05/10/16 16:00 97.6 61 20 137/54 97 Nasal Cannula 2.0 Intake and Output 05/10/16 05/11/16 19:00 07:00 Intake Total 460 ml Output Total 0 ml Balance 460 ml 0 ml Intake Oral 460 ml Output Urine Total 0 ml # Voids 3 # Bowel Movements 1 HEENT: normocephalic, atraumatic Abdomen: normal bowel sounds, soft, non tender 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
--- NOTE | 2016-05-11 14:52 | Pulmonology Progress Note ---
Assessment/Plan Problems: (1) Acute respiratory failure (2) COPD (chronic obstructive pulmonary disease) (3) Diabetes (4) ATN (acute tubular necrosis) (5) History of CHF (congestive heart failure) (6) Hyperkalemia, diminished renal excretion (7) Ascending aortic aneurysm (8) HTN (hypertension) (9) Pulmonary HTN Assessment/Plan continues to improve. dc home today f/u with primary physician respiratory treatment swallow study pt/ot med/surg \ Subjective ROS Limited/Unobtainable: No Interval Events: getting ready to go home, dyspnea totally resolved. Allergies: Coded Allergies: ASPIRIN (Verified Allergy, Severe, NOSEBLEED, 04/11/12) LEVOFLOXACIN (Verified Allergy, Severe, erythema/pain/redness at IV site, 10/04/15) Objective Last 24 Hour Vital Signs Date Time Temp Pulse Resp B/P Pulse Ox O2 Delivery O2 Flow Rate FiO2 05/11/16 11:49 97.6 76 20 121/67 99 Room Air 05/11/16 09:41 76 141/71 05/11/16 09:40 76 141/71 05/11/16 07:57 97.2 76 20 141/71 95 Room Air 05/11/16 07:12 95 Room Air 21 05/11/16 07:12 68 16 Nasal Cannula 3.0 32 05/11/16 04:00 97.3 71 18 145/59 Room Air 05/11/16 00:19 98.1 56 17 153/49 96 Room Air 05/10/16 21:18 61 133/63 05/10/16 20:00 97.7 61 20 133/63 97 Nasal Cannula 2.0 05/10/16 20:00 61 05/10/16 19:23 97 Nasal Cannula 3.0 32 05/10/16 19:23 Nasal Cannula 3.0 32 05/10/16 19:23 68 18 Nasal Cannula 3.0 32 05/10/16 18:03 61 137/54 05/10/16 16:00 67 05/10/16 16:00 97.6 61 20 137/54 97 Nasal Cannula 2.0 Intake and Output 05/10/16 05/11/16 19:00 07:00 Intake Total 460 ml Output Total 0 ml Balance 460 ml 0 ml Intake Oral 460 ml Output Urine Total 0 ml # Voids 3 # Bowel Movements 1 HEENT: normocephalic, atraumatic Respiratory/Chest: chest wall non-tender, lungs clear Cardiovascular: normal peripheral pulses, normal rate Abdomen: normal bowel sounds, soft, non tender Genitourinary: normal external genitalia Extremities: no cyanosis Skin: no rash MARIANO CHOWDARY May 11, 2016 14:52
--- NOTE | 2016-05-12 12:51 | Discharge Summary ---
Discharge Summary Hospital Course Date of Admission May 06, 2016 at 20:15 Date of Discharge May 11, 2016 at 13:35 Admitting Diagnosis SOB HPI Josef Meyer is a 81 year old female who was admitted on May 06, 2016 at 20:15 for Shortness Of Breath Hospital Course [id number] Discharge Discharge Disposition Patient was discharged to Home (01) Discharge Diagnoses: Dariana Jacobson NP May 12, 2016 12:51
--- NOTE | 2016-05-12 23:57 | Discharge Summary 2 SIG ---
DATE OF ADMISSION: 05/06/2016 DATE OF DISCHARGE: 05/11/2016 NET DEVELOPMENT MANAGER: Paco Dewey M.D. BRIEF HOSPITAL COURSE: The patient is an 81-year-old female, who was brought to ED due to shortness of breath for two days. She was brought from home by EMS. Respiratory status somewhat improved after breathing treatment by paramedics. She has history of COPD, NSTEMI, CHF, and cardiomyopathy. Workup at ED revealed negative troponin. EKG was normal sinus rhythm. Chest x-ray showed cardiomegaly with pulmonary congestion. She had elevated proBNP. Potassium was 5.6 and was given Kayexalate. She was started on empiric antibiotics and was admitted to [facility] for further management. She was placed on BiPAP secondary to hypoxemic respiratory failure and was given diuresis with Lasix. Dr. Dewey was consulted. The patient has a history of valvular heart disease and 5 cm ascending thoracic aortic aneurysm, diagnosed by CT scan six months ago. She did not wish to pursue any invasive therapies for the aneurysm and declined operative intervention. She had an echocardiogram done. Echocardiogram now shows normal LV function, however, suspect EF is about 45% to 50% with moderate to severe mitral regurgitation and moderate aortic stenosis and regurgitation. Troponins had been negative. A VQ scan showed intermediate probability. There was no DVT on venous Duplex. CT of the chest was negative for dissection and pulmonary emboli, but as expected was positive for effusion. Antihypertensives were adjusted. She improved with diuresis and the patient was discharged home to follow up with primary physician. FINAL DIAGNOSES: 1. Acute respiratory failure, requiring BiPAP. 2. Acute on chronic systolic heart failure. 3. Moderate aortic stenosis and insufficiency with mitral insufficiency. 4. Ascending thoracic aneurysm. 5. Hypertension. 6. Hyperlipidemia. 7. Pulmonary hypertension. 8. Diabetes. 9. Chest pain. 10. History of paroxysmal atrial fibrillation. 11. Hyperkalemia. 12. Acute tubular necrosis. Sumaya Stubbs M.D. I have been assigned to dictate discharge summary on this account and I was not involved in the patient's management. Dariana Jacobson N.P. DR: KELLI JOB#: [id number] CC:
--- NOTE | 2016-05-18 12:58 | Diagnostic Imaging Report ---
APPROVED REPORT CPT Code: 15971 Present Symptoms Lower Extremity Pain: Bilateral BILATERAL: Imaging reveals a patent deep venous system bilaterally. There is no evidence of thrombus within the femoral, popliteal or tibial segments. The greater saphenous veins are also within normal limits. Doppler indicates normal spontaneous flow within these segments.
--- NOTE | 2016-06-12 11:46 | Diagnostic Imaging Report ---
Indication: Shortness of breath Technique: One view of the chest Comparison: 10/06/2015 Findings: Aneurysmal thoracic aorta is again demonstrated. There is bilateral interstitial edema, not evident previously. There are probably small bilateral pleural effusions. Heart remains enlarged. There is cervical spine fusion hardware Impression: Cardiomegaly and pulmonary interstitial edema Aneurysmal thoracic aorta, also previously described This agrees with the preliminary interpretation provided overnight by Dr. Gonzalez
== END 2016-05-11 13:35 | disposition home or self-care (01) | DRG 291 ==
LOC: EDBD 18:43 → EMR 18:45 → EDBEDREQSVC 20:05 → 2W 20:15 → EDBEDREQ 21:26 → 2E 05-09 21:45 → 4E 05-11 01:44
PROC: 5A09357 Assistance with Respiratory Ventilation, Less than 24 Consecutive Hours, Continuous Positive Airway Pressure (ICD-10-PCS; principal; 2016-05-06)
DX: I11.0 Hypertensive heart disease with heart failure (principal); J96.01 Acute respiratory failure with hypoxia; N17.0 Acute kidney failure with tubular necrosis; E87.5 Hyperkalemia; I42.9 Cardiomyopathy, unspecified; I27.2 Other secondary pulmonary hypertension; I48.0 Paroxysmal atrial fibrillation; J44.9 Chronic obstructive pulmonary disease, unspecified; I25.2 Old myocardial infarction; D64.9 Anemia, unspecified; I71.2 Thoracic aortic aneurysm, without rupture; I08.0 Rheumatic disorders of both mitral and aortic valves; I50.23 Acute on chronic systolic (congestive) heart failure; E78.5 Hyperlipidemia, unspecified
CPT/HCPCS: 36415; 71010; 71275; 76775; 78579; 78580; 80048; 80053; 80069; 81001; 81003; 82270; 82378; 82436; 82533; 82550; 82553; 82607; 82746; 82962; 83036; 83540; 83550; 83605; 83615; 83735; 83880; 83930; 83935; 84100; 84133; 84300; 84439; 84443; 84481; 84484; 84550; 85007; 85025; 85044; 85060; 85610; 85651; 85730; 86710; 87040; 89050; 93005; 93306; 93970; 94640; 94660; 94664; 94760; A9503; J1815